=== PATIENT | male | born 1975 | race Caucasian/White ===

== ENCOUNTER 2024-07-06 02:25 | Observation (INO) | payer MEDICAID, SELFPAY ==
[2024-07-06] VITALS (22 sets, daily range): BP systolic 97–147; BP diastolic 69–123; PULSE 79–146; RESP 11–24; TEMP 36.6–36.8; O2SAT 93–99; BMI 30.3; BMI 30.4
--- NOTE | 2024-07-06 02:31 | EDS_ITS ---
HPI History of Present Illness Chief Complaint: Chest Pain [facility] Medical History (Updated 06/08/20 @ 21:01 by Rosa Riuz) Nicotine dependence History of non-ST elevation myocardial infarction (NSTEMI) (05/29/18) Atherosclerosis of coronary artery of [place] heart without angina pectoris Essential hypertension Hyperlipidemia Home Medications ?Medication ?Instructions ?Recorded ?Last Taken ?Type NK 07/06/24 Unknown History Allergy/AdvReac Type Severity Reaction Status Date / Time No Known Allergies Allergy Verified 07/06/24 02:25 Family History (Updated 06/02/19 @ 09:39 by Estrella Gold) Father Cancer Mother CAD (coronary artery disease) Myocardial infarction Hypertension Grandmother Diabetes Surgical History (Updated 06/08/20 @ 20:55 by Rosa Ruiz) History of coronary artery stent placement (06/04/18) History of appendectomy (1995) History of hernia repair (2014) Social History (Updated 06/11/19 @ 10:[address] Royer Nolan MD) Smoking Status: Current every day smoker alcohol intake: never substance use type: does not use caffeine: Yes Type: coffee MDM MDM MDM Narrative Medical decision making narrative: HISTORY OF PRESENT ILLNESS: Chief complaint: Lightheadedness 48-year-old male history of CAD status post, hypertension, hyperlipidemia, A- fib, nicotine dependence presents after being noncompliant with medications for several years. Notes he still smoking. Notes he developed sudden lightheadedness, nausea and diaphoresis prior to arrival which prompted his called EMS. EMS told him he was in A-fib. He states he has no history of A- fib. Denies any bleeding diathesis. Denies any vomiting or diarrhea. Denies any recent illness. The patient denies recent surgery in the last 4 weeks or immobilization in the last 3 days, denies previous diagnosis of DVT or PE, hemoptysis, unilateral leg swelling or malignancy with treatment the last 6 months or palliative. No estrogen use noted. REVIEW OF SYSTEMS: Pertinent positives: Lightheadedness, nausea, diaphoresis Pertinent negatives: Chest pain, shortness of breath, leg swelling PHYSICAL EXAM: Nursing triage notes reviewed, Vital signs reviewed Constitutional: please see mdm HENT: MMM Eyes: Pupils equal round and reactive to light, Extraocular muscles intact Neck: No stridor, no JVD, full neck ROM Lungs: Clear to auscultation, No wheezing or rales. No increased work of breathing, no conversational dyspnea, no accessory muscle use, no nasal flaring. No respiratory distress noted Heart: Regular rate and rhythm, No murmurs, No rubs and No gallops, 2+ distal pulses (radial, femoral, posterior tibial) in all extremities Abdomen: Soft, there is no tenderness, rigidity, rebound or guarding, no obvious peritoneal signs, no palpable pulsatile abdominal masses, no auscultated abdominal bruit : No CVAT Extremities: No edema Neuro: No new focal neurological deficits, cranial nerves II through XII intact, 5/5 strength in all present extremities. Intact sensation to light touch in all present extremities, 2+ reflexes bilateral patella tendons. Skin: No rash or lesions noted MEDICAL DECISION MAKING: Chief Complaint: please see [facility] External records reviewed: Reviewed cath report from 2019. Noted PCI to LAD. Recommended to continue aspirin daily indefinitely at this time. Factors affecting care: As per [facility] Social determinants of health: Nicotine dependence History obtained from others: EMS Consults: n internal medicine (Dr. Hazel) [facility] Narrative: Patient was initially tachycardi with heart rate of 146 , tachypneic with respiratory 24, otherwise afebrile and nontoxic-appearing. Initial exam with fast irregular rate consistent with A-fib. Lungs were clear. No stigmata of VTE or CHF. I considered the following differential diagnosis: Arrhythmia, ACS, anemia, electrolyte disturbance, pneumonia, CHF, PE I considered PE as a potential precipitating cause patient did not have any chest pain, shortness of breath and had a low risk Wells score as such a low suspicion for PE at this time. I initially treated the patient with 500 cc NS bolus, 324 mg of PO aspirin and 5 mg of IV metoprolol every 5 minutes with parameters of giving for heart rate greater than 110 and holding for systolic blood pressure less than 100. ALL IMAGES (IF OBTAINED) HAVE BEEN PERSONALLY REVIEWED AND INTERPRETED BY MYSELF. EKG with A-fib with RVR rate 147, normal QT interval, no obvious STEMI or ischemic changes CBC without leukocytosis, severe anemia, no thrombocytopenia. High-sensitivity troponin is negative, no evidence of myocardial ischemia BNP within normal limits suggestive of no heart failure or volume overload I have personally reviewed the patient's chest x-ray. Chest x-ray is unremarkable for pulmonary edema, pneumothorax, pneumonia or focal cardiopulmonary abnormality. Upon reevaluation his heart rate improved but still in A-fib with a rate anywhere from the upper 90s to 110s. At this time he was given 25 mg of oral metoprolol. Given new onset A-fib with RVR, medication noncompliance and need for risk factor modification and initiation of possible anticoagulation as well as cardiology consultation patient is to be admitted to PCU observation. Discussed with Dr. Hazel who accepted the patient's case. The patient and/or family, caregivers express understanding. The patient and/or family, caregivers agrees with the plan. Shared decision making: I will have a discussion with the patient and or visitors regarding risk/benefits of further testing or admission. They will be made aware of of the risk/benefits inherent in this decision they will be given the opportunity to voice understanding. Total critical care time today provided was at least 60 minutes. This excludes separately billable procedures. Critical care time (if documented) is secondary to the patient having high probability of clinically significant/life threatening deterioration in the patient's condition which required my urgent intervention. Impression: 1. A-fib with RVR 2. History of CAD 3. History of tobacco abuse Dispo: Admit to PCU ops This note was generated with [employer] dictation software. It may contain incorrect words, spelling, and punctuation that were not noted in review of the chart prior to signing. Discharge Plan Triage Chief Complaint: Chest Pain ED Provider: Mau Lafleur Dx/Rx/DC Orders Prescriptions: No Action NK Primary Care Provider: Chuyita Hope NP Referrals: Chuyita Hope NP, [employer] [Primary Care Provider] - Print Language: Angolan
--- NOTE | 2024-07-06 02:37 | EKG12_ITS ---
Test Reason : CP Blood Pressure : */* mmHG Vent. Rate : 147 BPM Atrial Rate : * BPM P-R Int : * ms QRS Dur : 78 ms QT Int : 256 ms P-R-T Axes : * -29 66 degrees QTcB Int : 400 ms Critical Test Result: High HR Atrial fibrillation with rapid ventricular response Abnormal ECG No previous ECGs available Confirmed by Curly Lucas ([id number]), news copy editor EMILIA MICHELE ([id number]) on 07/09/2024 10:06:04 AM Referred By: Confirmed By: Curly Lucas
[2024-07-06] MEDS: Aspirin 81 MG TAB.CHEW 324 MG PO (02:43)
[2024-07-06] MEDS: 0.9% Normal Saline (500mL Bag) 500 ML 999 ML IV (02:43)
[2024-07-06 02:46] LABS: Absolute Lymphocyte Count 2.95 X10^3/uL (0.83-4.51); Absolute Neutrophil Count 5.9 X10^3/uL (2.0-7.7); Basophil# 0.07 X10^3/uL; Basophil% 0.7 % (0-1); Eosinophil# 0.17 X10^3/uL; Eosinophils% 1.7 % (0-5); Hematocrit 47.3 % (40-54); Hemoglobin 15.9 g/dL (13.0-16.5); Lymphocyte # 2.95 X10^3/ul (0.83-4.51); Lymphocyte % 28.9 % (19-41); Mean Corp Hgb Conc 33.6 g/dL (32-36); Mean Corpuscular Hgb 29.7 pg (27.0-32.0); Mean Corpuscular Volume 88.4 fL (80-94); Mean Platelet Vol. 9.3 fl (6.2-12.0); Monocyte% 9.8 % (0-10); NRBC Flagged by Analyzer 0 % (0-5); Neutrophil # 5.93 X10^3/uL (2.7-7.7); Neutrophil % 58.2 % (47-70); Platelet Count 267 K/mm3 (150-450); RBC Distribution Width CV 12.9 % (11.6-14.6); Red Blood Count 5.35 M/mm3 (4.6-6.2); White Blood Count 10.2 K/mm3 (4.4-11.0)
[2024-07-06] MEDS: Metoprolol Tartrate 5 MG/5 ML Vial IV ×3 (02:46→03:11)
--- NOTE | 2024-07-06 02:55 | RAD_ITS ---
PROCEDURE: CHEST 1 VIEW (PORTABLE) 07/06/2024 REASON FOR EXAM: CHEST PAIN TECHNIQUE: Frontal view of the chest. COMPARISON: None. FINDINGS: Cardiac size and pulmonary vasculature are within normal limits. No consolidation, pleural effusion, or pneumothorax is present. RAD/Chest 1 View (Portable) IMPRESSION: No acute cardiopulmonary process. Reading [facility]
[2024-07-06 03:09] LABS: Pro- Brain NATRIURETIC PEPTIDE 120 pg/mL (<=900); Troponin T High Sensitivity 24 ng/L (<=22)
[2024-07-06 03:23] LABS: Anion Gap 13 (5-15); BUN 13 mg/dL (4-19); BUN/Creat Ratio 14.4 RATIO (10-20); Calcium,Total 9.4 mg/dL (7.6-11.0); Carbon Dioxide 23.2 mmol/L (21.0-32.0); Chloride 105 mmol/L (98-108); Creatinine, Serum 0.92 mg/dL (0.70-1.20); EST Glomerular Filtration Rate 102 (>60); Estimated Creatinine Clearance 111.68 ml/min (50-250); Glucose 129 mg/dL (70-99); Sodium Level 141 mmol/L (133-145)
[2024-07-06] MEDS: Metoprolol Tartrate 25 MG Tablet PO (03:38)
--- NOTE | 2024-07-06 03:53 | PCM.HP.STD ---
HPI - General General Date of Admission: 07/06/24 Date of Service: 07/06/24 Chief Complaint: Lightheadedness, Palpitations and Nausea. HPI Narrative MILA MCKEON, is a 48 M with a past medical history of essential hypertension; on treatment, hyperlipidemia; not on treatment, obesity; with BMI 30.4 this admission, chronic and ongoing tobacco abuse, history of hernia; s/p repair (2014), history of appendectomy (1995) and history of significant CAD; s/p MA with subsequent LAD/OM-2/LCx stents (2018) currently not taking recommended baby aspirin daily who presents to [facility] ER complaining of chest pain, lightheadedness and nausea. Mr. Mckeon reports his symptoms began approximately 1 hour prior to arrival with the abrupt onset of lightheadedness, nausea and palpitations with heart racing followed by diaphoresis which prompted him to activate EMS. EMS suspected he was in atrial fibrillation but he denies a history of atrial fibrillation or other significant arrhythmia. He denies recent illness, recent trauma, fever, chills, vomiting, diarrhea, constipation, headache or rash. In the ER he was noted to be initially tachycardic at ~146 bpm with tachypnea of 24 breaths/min with a EKG evidence of Atrial Fibrillation; with Rapid Ventricular Response with a mildly elevated troponin T of 24 ng/L and a CXR which revealed no acute pathologic process and he was then admitted to the PCU under observation status for ongoing care for a stay that is expected to be less than 2 midnights. [facility] Medical History Nicotine dependence History of non-ST elevation myocardial infarction (NSTEMI) (05/29/18) Atherosclerosis of coronary artery of [place] heart without angina pectoris Essential hypertension Hyperlipidemia Home Medications ?Medication ?Instructions ?Recorded ?Last Taken ?Type NK 07/06/24 Unknown History Allergy/AdvReac Type Severity Reaction Status Date / Time No Known Allergies Allergy Verified 07/06/24 02:25 Family History Father Cancer Mother CAD (coronary artery disease) Myocardial infarction Hypertension Grandmother Diabetes Surgical History History of coronary artery stent placement (06/04/18) History of appendectomy (1995) History of hernia repair (2014) Social History Smoking Status: Current every day smoker tobacco type: cigarettes alcohol intake: never substance use type: does not use caffeine: Yes Type: coffee ROS ROS Narrative Review of Systems: Constitutional: Patient admits to diaphoresis but he denies fever or chills. Eyes: Patient denies change in vision or discharge from eyes. ENT: Patient denies runny nose, sore throat or ear pain. Resp: Patient had mild shortness of breath but he denies cough. CV: Patient admits to palpitations and heart racing with diaphoresis as per HPI. Patient denies lower extremity edema or chest pain. GI: Patient admits to nausea but he denies vomiting, diarrhea, constipation or abdominal pain. : Patient denies dysuria, hematuria or urinary frequency. MSK: Patient denies arthralgias or myalgias. Skin: Patient denies rash, abscess, wounds or jaundice. Psych: Patient denies symptoms of uncontrolled depression or anxiety. Neuro: Patient denies headache, paresthesias or focal neurologic deficits. Allergy: Patient denies lip swelling, tongue swelling or urticaria. Hematology: Patient denies easy bleeding or easy bruisability. Endocrinology: Patient denies polyuria, polydipsia, polyphagia or heat/cold intolerance. Total time: Approximately (but not less than) 75 minutes. Vital Signs Vital Signs Vital Signs: 07/06/24 02:25 07/06/24 02:25 07/06/24 02:37 Temperature 98.2 F Temperature Source Oral Pulse Rate 146 H Respiratory Rate 24 H Respiratory Effort Normal Non-Labored Blood Pressure 147/109 H Blood Pressure Mean 121 Pulse Ox 96 98 Oxygen Delivery Method Room Air Room Air 07/06/24 03:00 07/06/24 03:10 07/06/24 03:50 Temperature 98.3 F Temperature Source Pulse Rate 126 H 116 H 111 H Respiratory Rate 17 20 H 19 H Respiratory Effort Blood Pressure 137/88 H 128/89 H 133/90 H Blood Pressure Mean 104 102 104 Pulse Ox 97 98 98 Oxygen Delivery Method Room Air Room Air Weight Weight: 211 lb 10.3 oz Body Mass Index (BMI) 30.3 Physical Exam Const alert, oriented x3 and no apparent distress Constitutional Narrative: Obese. General Appearance: cooperative HEENT normocephalic, head/scalp atraumatic, hearing grossly normal bilaterally and moist oral mucous membranes Eyes PERRL and EOMs intact bilaterally Neck no lymphadenopathy, supple and no JVD Resp normal respiratory effort, no retractions, no use of accessory muscles and clear to auscultation bilaterally Cardio Cardio Narrative: Irregularly irregular at ~120 bpm. GI normal to inspection, nondistended, normoactive bowel sounds, soft to palpation, non-tender and non-distended GI Narrative: Obese. Extremity normal to inspection, full ROM and no clubbing, cyanosis or edema Skin Skin Narrative: Patient has no evidence of rash, abscess, wounds or jaundice. Neuro oriented x3, CN's II-XII intact bilaterally, moves all extremities and no focal motor deficits Sensorium / Orientation: awake, alert, oriented to person, oriented to place and oriented to time Speech: speech normal Psych affect normal Results Medical Records Data Attestation: I reviewed the patient's medical records Lab / Micro Data Attestation: I reviewed the patient's lab results. 07/06/24 02:30 07/06/24 02:30 Labs: Laboratory Results - last 24 hr 07/06/24 02:30: WBC 10.2, RBC 5.35, Hgb 15.9, Hct 47.3, MCV 88.4, MCH 29.7, MCHC 33.6, RDW Std Deviation 42.0, RDW Coeff of [place] 12.9, Plt Count 267, MPV 9.3, Immature Gran % (Auto) 0.700, Neut % (Auto) 58.2, Lymph % (Auto) 28.9, [place] % (Auto) 9.8, Eos % (Auto) 1.7, Baso % (Auto) 0.7, Absolute Neuts (auto) 5.9, Absolute Lymphs (auto) 2.95, Nucleated RBC % 0, Sodium 141, Potassium 4.0, Chloride 105, Carbon Dioxide 23.2, Anion Gap 13, BUN 13, Creatinine 0.92, Estim Creat Clear Calc 111.68, Est GFR (MDRD) Non-Af 102, BUN/Creatinine Ratio 14.4, Glucose 129 H, Calcium 9.4, Troponin T High Sens 24 H, NT pro BNP II 120 Imaging Radiology Impression Chest X-Ray 07/06/24 02:55 IMPRESSION: No acute cardiopulmonary process. Reading Location: [facility] Assessment & Plan Assessment/Plan (1) Atrial fibrillation with RVR: (2) Elevated troponin: (3) History of coronary artery stent placement: (4) History of non-ST elevation myocardial infarction (NSTEMI): (5) Tobacco abuse: (6) Obesity (BMI 30.0-34.9): (7) Nicotine dependence: QUALIFIERS: Nicotine product type: cigarettes Substance use status: uncomplicated Qualified Code(s): F17.210 - Nicotine dependence, cigarettes, uncomplicated (8) Essential hypertension: (9) Hyperlipidemia: QUALIFIERS: Hyperlipidemia type: unspecified Qualified Code(s): E78.5 - Hyperlipidemia, unspecified PLAN: Plan 1. Atrial Fibrillation; with RVR, apparently new-onset - Admit to PCU under observation status. Start Cardizem infusion IV keep heart rate less than 100 bpm. Start full-dose Lovenox. Serialize troponin. Check echocardiogram to evaluate LVEF. Give acetaminophen as needed for pain or fever. Finally, we will consult [facility] cardiology to see this patient on rounds in the a.m. with help appreciated in advance. 2. Mildly elevated troponin T of 24 ng/L likely due to mild acute cardiac strain rising from #1 - Serialize troponin. Doubt ACS. 3. History of significant CAD; s/p MA with subsequent LAD/OM-2/LCx stents (2019) currently not taking recommended baby aspirin daily complicating #1 & #2 - Restart BASA daily. 4. Chronic and ongoing Tobacco Abuse compounding #1 - #3 - Tobacco Cessation will be strongly encouraged. 5. Obesity; with BMI 30.4 this admission adding to the burden of disease outlined from #1 - #4 - Weight loss will be recommended. Check TSH. This complicates his case and may hamper recovery. 6. Essential Hypertension; on treatment - Continue oral metoprolol begun in the ER plus give prn IV Hydralazine for systolic blood pressure > 160 mmHg. 7. Hyperlipidemia; not on treatment - Check Lipid Profile to reassess. 8. History of hernia; s/p repair (2014) - Noted. 9. History of appendectomy (1995) - Noted. 10. DVT prophylaxis - Patient on full-dose enoxaparin for #1. Total time: Approximately (but not less than) 70 minutes. Charges/Coding Visit Charges OBSV E&M: 88899 Observ/hosp same date L2
[2024-07-06 04:56] LABS: Magnesium 2.2 mg/dL (1.5-2.2); Troponin T High Sens 2 HR 48 ng/L (<=22)
[2024-07-06] MEDS: 0.9% Normal Saline (1000mL) 1,000 ML 70 ML IV (04:56)
[2024-07-06] MEDS: Enoxaparin 100 MG/ML Syringe 95 MG SC (04:57)
[2024-07-06] MEDS: 0.9% Saline Lock 10 ML Syringe IV (05:00)
[2024-07-06] MEDS: Diltiazem 125 MG in Dextrose 5%-Water (100mL Bag) 100 ML IV (05:00)
[2024-07-06 06:50] LABS: Phosphorus 3.1 mg/dL (2.7-4.5)
[2024-07-06 06:55] LABS: Alcohol, Blood (Medical)-Serum < 10.1 mg/dL (<=10.0)
[2024-07-06 07:03] LABS: Hemoglobin A1c 6.1 % (<=5.6)
[2024-07-06 07:16] LABS: Troponin T High Sens 4 HR 69 ng/L (<=22)
--- NOTE | 2024-07-06 07:41 | PCM.PN.HOSP ---
Reason for Visit Reason for Visit: Diagnoses Obesity, class 1 (07/06/24) Hyperlipidemia, unspecified (07/06/24) Nicotine dependence, unspecified, uncomplicated (07/06/24) Nicotine dependence, cigarettes, uncomplicated (07/06/24) Essential (primary) hypertension (07/06/24) Old myocardial infarction (07/06/24) Unspecified atrial fibrillation (07/06/24) Other specified abnormal findings of blood chemistry (07/06/24) Tobacco use (07/06/24) Presence of coronary angioplasty implant and graft (07/06/24) Subjective Subjective Feeling much better. Objective Data Objective Data Vital Signs: Vital Signs Temp Pulse Resp BP Pulse Ox O2 Del Method 36.7 C 85 16 116/84 H 97 Room Air 07/06/24 05:00 07/06/24 07:00 07/06/24 07:00 07/06/24 07:00 07/06/24 07:00 07/06/24 07:32 Oxygen Delivery Method Room Air Weight: 96.2 kg Body Mass Index (BMI) 30.4 Intake & Output: Intake and Output for Last 24 Hours 07/04/24 07/05/24 07/06/24 23:59 23:59 23:59 Intake Total 510.00 / 510.00 Balance 510.00 / 510.00 Lab / Micro Data 07/06/24 02:30 07/06/24 02:30 Labs: Laboratory Results - last 24 hr 07/06/24 02:30: WBC 10.2, RBC 5.35, Hgb 15.9, Hct 47.3, MCV 88.4, MCH 29.7, MCHC 33.6, RDW Std Deviation 42.0, RDW Coeff of [place] 12.9, Plt Count 267, MPV 9.3, Immature Gran % (Auto) 0.700, Neut % (Auto) 58.2, Lymph % (Auto) 28.9, [place] % (Auto) 9.8, Eos % (Auto) 1.7, Baso % (Auto) 0.7, Absolute Neuts (auto) 5.9, Absolute Lymphs (auto) 2.95, Nucleated RBC % 0, Sodium 141, Potassium 4.0, Chloride 105, Carbon Dioxide 23.2, Anion Gap 13, BUN 13, Creatinine 0.92, Estim Creat Clear Calc 111.68, Est GFR (MDRD) Non-Af 102, BUN/Creatinine Ratio 14.4, Glucose 129 H, Hemoglobin A1c 6.1 H, Calcium 9.4, Troponin T High Sens 24 H, NT pro BNP II 120 07/06/24 04:30: Phosphorus 3.1, Magnesium 2.2, Troponin T Hi Sens 2 Hr 48 H 07/06/24 06:25: Troponin T Hi Sens 4Hr 69 H*, Ethyl Alcohol < 10.1 Radiography Diagnostic Testing: Radiology Impression Chest X-Ray 07/06/24 02:55 IMPRESSION: No acute cardiopulmonary process. Reading Location[facility] Physical Exam Const alert and no apparent distress HEENT head/scalp atraumatic and moist oral mucous membranes Resp normal respiratory effort and no retractions Cardio regular rate, regular rhythm, S1 normal heart sound and S2 normal heart sound GI normal to inspection, nondistended, normoactive bowel sounds, soft to palpation and non-tender Extremity normal to inspection and full ROM Neuro Sensorium / Orientation: awake and alert Psych affect normal Assessment & Plan Assessment/Plan (1) Atrial fibrillation with RVR: PLAN: Dilt gtt. Increase metoprolol tartrate to 50 BID. [id number] 0 Cards consult echo pending Pt wants to go home. I told him if we can stablize his HR w PO meds and get him off the dilt gtt, then we could and he would have to follow up with his PCP to have an outpatient echo. I recemmended he stay until 07/07 to have the echo. (2) Elevated troponin: PLAN: Likely demand ischemia from Afib with RVR. PLAN: Plan VTE prophylaxis: LMWH. Charges/Coding Visit Charges Inpatient E&M: 67401 Subs Hosp L2
[2024-07-06 09:13] LABS: Cholesterol 176 mg/dL (<=200); High Density Lipoprotein 30 mg/dL; Low Density Lipoprotein Calc. 82 mg/dL; Triglycerides 323 mg/dL; Very Low Density Lipoprotein 65 mg/dL (5-40); cholesterol:hdl ratio screen 5.91
[2024-07-06] MEDS: Metoprolol Tartrate 25 MG Tablet 12.5 MG PO (09:22)
[2024-07-06] MEDS: Metoprolol Tartrate 25 MG Tablet 37.5 MG PO (10:15)
--- NOTE | 2024-07-06 12:31 | CON.PCM.CA_ITS ---
Assessment & Plan Assessment/Plan (1) Tobacco abuse: (2) Elevated troponin: (3) History of non-ST elevation myocardial infarction (NSTEMI): (4) History of coronary artery stent placement: (5) Essential hypertension: (6) Hyperlipidemia: QUALIFIERS: Hyperlipidemia type: unspecified Qualified Code(s): E 78.5 - Hyperlipidemia, unspecified (7) Nicotine dependence: QUALIFIERS: Nicotine product type: cigarettes Substance use status: uncomplicated Qualified Code(s): F17.210 - Nicotine dependence, cigarettes, uncomplicated (8) Atrial fibrillation with RVR: PLAN: 48-year-old patient with known history of CAD Has a prior PCI to OM 2019 History of hypertension Nicotine dependence Presented with symptoms of palpitation dizziness epigastric discomfort does not have any active chest pain Cardiac auscultation requested, to evaluate for management and assessment of A- fib with RVR In addition to elevated the high sensitive troponins patient does not have any active chest pain Review of the EKG showed A-fib with RVR athletic monitor noted patient has B[place] and the personnel monitor. Cardiac care plan recommendations; 1. I recommended to continue monitoring cardiac telemetry. On current medication with calcium channel devan and beta-devan 2. Based on chads vascular score his risk of stroke is high recommend to start on anticoagulation with Eliquis. 3. Advised cessation of smoking and compliance with medical recommendation 4. Patient decided discharged against medical and to follow-up with his primary oil well logger ,Sydnie . HPI Consult Data Date of Consult: 07/06/24 HPI Narrative Reason for Consultation: CAD/A-fib with RVR HPI Narrative: MILA POSADA, is a 48 M who presents [facility] Medical History Nicotine dependence History of non-ST elevation myocardial infarction (NSTEMI) (05/29/18) Atherosclerosis of coronary artery of [place] heart without angina pectoris Essential hypertension Hyperlipidemia Home Medications ?Medication ?Instructions ?Recorded ?Last Taken ?Type NK 07/06/24 Unknown History Allergy/AdvReac Type Severity Reaction Status Date / Time No Known Allergies Allergy Verified 07/06/24 02:25 Family History Father Cancer Mother CAD (coronary artery disease) Myocardial infarction Hypertension Grandmother Diabetes Surgical History History of coronary artery stent placement (06/04/18) History of appendectomy (1995) History of hernia repair (2014) Social History Smoking Status: Current every day smoker tobacco type: cigarettes alcohol intake: never substance use type: does not use caffeine: Yes Type: coffee Physical Exam Cardio Cardio Narrative: Patient seen and evaluated at bedside along with the nursing staff Review of the personnel monitor showed underlying atrial fibrillation Has been stable hemodynamically Symptoms of palpitation dizziness improving Cardiac exam S1-S2 is regular Chest exam is clear auscultation bilateral. Examination lower extremity no lower extremity edema. Risk Stratification Risk Stratification Applicable: No Objective Data Vital Signs: Vital Signs Temp Pulse Resp BP Pulse Ox O2 Del Method 98.1 F 79 19 H 135/123 H 93 Room Air 07/06/24 05:00 07/06/24 11:00 07/06/24 11:00 07/06/24 11:00 07/06/24 11:00 07/06/24 11:00 Oxygen Delivery Method Room Air Weight: 212 lb 1.355 oz Body Mass Index (BMI) 30.4 Intake & Output: Intake and Output for Last 24 Hours 07/04/24 07/05/24 07/06/24 23:59 23:59 23:59 Intake Total 770.00 / 770.00 Balance 770.00 / 770.00 Lab / Micro Data 07/06/24 02:30 07/06/24 02:30 Labs: Laboratory Results - last 24 hr 07/06/24 02:30: WBC 10.2, RBC 5.35, Hgb 15.9, Hct 47.3, MCV 88.4, MCH 29.7, MCHC 33.6, RDW Std Deviation 42.0, RDW Coeff of Franklin 12.9, Plt Count 267, MPV 9.3, Immature Gran % (Auto) 0.700, Neut % (Auto) 58.2, Lymph % (Auto) 28.9, Lawrence % (Auto) 9.8, Eos % (Auto) 1.7, Baso % (Auto) 0.7, Absolute Neuts (auto) 5.9, Absolute Lymphs (auto) 2.95, Nucleated RBC % 0, Sodium 141, Potassium 4.0, Chloride 105, Carbon Dioxide 23.2, Anion Gap 13, BUN 13, Creatinine 0.92, Estim Creat Clear Calc 111.68, Est GFR (MDRD) Non-Af 102, BUN/Creatinine Ratio 14.4, G lucose 129 H, Hemoglobin A1c 6.1 H, Calcium 9.4, Troponin T High Sens 24 H, NT pro BNP II 120 07/06/24 04:30: Phosphorus 3.1, Magnesium 2.2, Troponin T Hi Sens 2 Hr 48 H 07/06/24 06:25: Troponin T Hi Sens 4Hr 69 H*, Triglycerides 323 H, Cholesterol 176, LDL Cholesterol, Calc 82, VLDL Cholesterol 65 H, HDL Cholesterol 30 L, Cholesterol/HDL Ratio 5.91, TSH 1.530, Ethyl Alcohol < 10.1 Cardiology Labs/Tests 07/06/24 02:30: WBC 10.2, RBC 5.35, Hgb 15.9, Hct 47.3, MCV 88.4, MCH 29.7, MCHC 33.6, Plt Count 267, MPV 9.3, Immature Gran % (Auto) 0.700, Neut % (Auto) 58.2, Lymph % (Auto) 28.9, Lawrence % (Auto) 9.8, Eos % (Auto) 1.7, Baso % (Auto) 0.7, Absolute Neuts (auto) 5.9, Nucleated RBC % 0, Sodium 141, Potassium 4.0, Chloride 105, Carbon Dioxide 23.2, Anion Gap 13, BUN 13, Creatinine 0.92, Est GFR (MDRD) Non-Af 102, BUN/Creatinine Ratio 14.4, Glucose 129 H, Hemoglobin A1c 6.1 H, Calcium 9.4 07/06/24 04:30: Phosphorus 3.1, Magnesium 2.2 07/06/24 06:25: Triglycerides 323 H, Cholesterol 176, VLDL Cholesterol 65 H, HDL Cholesterol 30 L, Cholesterol/HDL Ratio 5.91 Rhythm: EKG: ECHO: Stress Test: Cardiac Cath: PCI: CT Surgery: Holter monitor: EPS: PPM: CXR: Chest CT Scan: Radiography Diagnostic Testing: Radiology Impression Chest X-Ray 07/06/24 02:55 IMPRESSION: No acute cardiopulmonary process. Reading Location: [facility]
--- NOTE | 2024-07-06 12:47 | PCM.DC.SUM ---
Providers Date of Admission: 07/06/24 Primary Care Physician: MELLY Shoemaker Consultations 07/06/24 04:44 Consult: Cardiology Routine Consulting Provider: Sarah Downing Reason for Consult: AFIB; with RVR. EMERGENT Consult: No MD Notified: Yes Date Notified: 07/06/24 Time Notified: 06:43 Method of Notification: Text Method of Consult:: In-Person Reason For Visit: AFIB WITH RVR, ELEVATED TROPONIN, HISTORY OF Diagnosis Discharge Diagnosis (1) Atrial fibrillation with RVR: Status: Acute Code(s): I48.91 - Unspecified atrial fibrillation Plan: Dilt gtt. Increase metoprolol tartrate to 50 BID. [id number] 2 Cards consult echo pending Pt wants to go home. Pt saw cardiology who also recommended he stay and get the echo. Patient insists on going home. Patient will need to follow up with PCP and his parlor maid to for follow up and have outpt echocardiogram. VICTORIANO Givens, who recommends continuing metoprolol 50 BID, diltiazem 30 q6h and 5 mg apixaban BID. (2) Elevated troponin: Status: Acute Code(s): R79.89 - Other specified abnormal findings of blood chemistry Plan: Likely demand ischemia from Afib with RVR. Plan VTE prophylaxis: LMWH. Medications at Discharge Home Medications apixaban 5 mg tablet 5 mg PO BID #60 tabs 07/06/24 diltiazem HCl 30 mg tablet 30 mg PO Q6H #120 tabs 07/06/24 metoprolol tartrate 50 mg tablet 50 mg PO BID #60 tabs 07/06/24 Hospital Course Summary of Care Provided Minutes Spent on Discharge: 35 Weight / BMI Weight Weight: 96.2 kg Body Mass Index (BMI) 30.4 ABG / Lab / Microbiology Data 07/06/24 02:30 07/06/24 02:30 Laboratory: Laboratory Results - last 24 hr 07/06/24 02:30: WBC 10.2, RBC 5.35, Hgb 15.9, Hct 47.3, MCV 88.4, MCH 29.7, MCHC 33.6, RDW Std Deviation 42.0, RDW Coeff of Franklin 12.9, Plt Count 267, MPV 9.3, Immature Gran % (Auto) 0.700, Neut % (Auto) 58.2, Lymph % (Auto) 28.9, [place] % (Auto) 9.8, Eos % (Auto) 1.7, Baso % (Auto) 0.7, Absolute Neuts (auto) 5.9, Absolute Lymphs (auto) 2.95, Nucleated RBC % 0, Sodium 141, Potassium 4.0, Chloride 105, Carbon Dioxide 23.2, Anion Gap 13, BUN 13, Creatinine 0.92, Estim Creat Clear Calc 111.68, Est GFR (MDRD) Non-Af 102, BUN/Creatinine Ratio 14.4, Glucose 129 H, Hemoglobin A1c 6.1 H, Calcium 9.4, Troponin T High Sens 24 H, NT pro BNP II 120 07/06/24 04:30: Phosphorus 3.1, Magnesium 2.2, Troponin T Hi Sens 2 Hr 48 H 07/06/24 06:25: Troponin T Hi Sens 4Hr 69 H*, Triglycerides 323 H, Cholesterol 176, LDL Cholesterol, Calc 82, VLDL Cholesterol 65 H, HDL Cholesterol 30 L, Cholesterol/HDL Ratio 5.91, TSH 1.530, Ethyl Alcohol < 10.1 Radiography Diagnostic Testing: Radiology Impression Chest X-Ray 07/06/24 02:55 IMPRESSION: No acute cardiopulmonary process. Reading Location: [facility] Instructions Discharge Diet: No restrictions DC O2, CPAP, BIPAP Needs Home O2 Discharge instructions: No Meaningful Use Info Meaningful Use Meaningful Use Diagnoses (Choose all that apply): None applicable Ischemic Stroke Statin Dosing Therapy Reference: STATIN DOSE THERAPY REFERENCE: * Patients > 75 years receive moderate or high dose statin therapy. * Patients 75 years or YOUNGER should receive HIGH intensity statin dose unless contraindicated. You will be required to document reason for non-treatment if statin daily dose does not meet guidelines. HIGH DOSE STATIN THERAPY DAILY Atorvastatin > than or = to 40 mg Rosuvastatin > than or = to 20 mg Amlodipine + Atorvastatin > than or = to 2.5/40 mg Ezetimibe + Simvastatin 10/80 mg Simvastatin 80mg Discharge Plan Admission Admit Date/Time: 07/06/24 04:22 Primary Reason for Your Visit: atrial fibrillation Attending Provider: Familia Escobar Primary Care Provider: Chuyita Hope NP Consulting Providers: Ousmane Daniels; Gloria Hassan; Matthew Forrest; Wisam Langford; Royer Nolan; Abbi Givens; Curly Lucas; Ang Turner; Enoc Garcia; Anton Sorenson; Emanuel Spangler NP; Kathya Garza; Edgar Titus; Samy Ramos Instructions Additional Instructions / Restrictions: You had atrial fibrillation with a fast rate. you have required 2 medications to slow the heart rate down. You will also be on blood thinners to help prevent stroke. Please follow up with your primary care physician and parlor maid as you will need to have an echocardiogram (ultrasound of your heart). Discharge Orders/Prescriptions Prescriptions: New metoprolol tartrate 50 mg Tablet 50 mg PO BID Qty: 60 0RF diltiazem HCl 30 mg tablet 30 mg PO Q6H Qty: 120 0RF apixaban 5 mg tablet 5 mg PO BID Qty: 60 0RF Referrals / Follow Up: Chuyita Hope NP, [employer] [Primary Care Provider] - Within 2 Weeks Disposition Disposition (needs filled in before D/C Order can be placed): Home, Self Care Charges/Coding Visit Charges Inpatient E&M: 15513 Disch Hosp >30min
== END 2024-07-06 12:56 | disposition home or self-care (01) ==
LOC: ED 02:50 → PCU 04:31
PROVIDERS: Admitting Provider Internal Medicine; Emergency Provider Emergency Medicine; PCP Nurse Practitioner Family
DX: I48.91 Unspecified atrial fibrillation (principal); I24.89 Other forms of acute ischemic heart disease; E78.5 Hyperlipidemia, unspecified; I10 Essential (primary) hypertension; R11.0 Nausea; I25.10 Atherosclerotic heart disease of native coronary artery without angina pectoris; E66.9 Obesity, unspecified; Z68.30 Body mass index [BMI] 30.0-30.9, adult; I25.2 Old myocardial infarction; F17.210 Nicotine dependence, cigarettes, uncomplicated; Z79.82 Long term (current) use of aspirin; Z79.01 Long term (current) use of anticoagulants; Z79.899 Other long term (current) drug therapy; Z95.5 Presence of coronary angioplasty implant and graft; Z91.148 Patient's other noncompliance with medication regimen for other reason
CPT/HCPCS: 36415; 71045; 80048; 80061; 82077; 83036; 83735; 83880; 84100; 84443; 84484; 85025; 93005; 96365; 96366; 96372; 96375; 99285; A4216